=== PATIENT | female | born 1970 | race Caucasian/White ===

== ENCOUNTER 2021-04-20 14:56 | Emergency (ER) | payer OTHER, SELFPAY ==
--- NOTE | ~2021-04-20 | CT_ITS ---
EXAMINATION: CT abdomen pelvis w con DATE: 04/20/2021 18:12 INDICATION: Mid abdominal pain TECHNIQUE: Computed tomography (CT) of the abdomen and pelvis was performed with 100 cc Omnipaque 350 intravenous contrast. Automated exposure control and iterative reconstruction technique were employe d. Exam dose: 337.13 mGy-cm total exam DLP. COMPARISON: 03/13/2019 CT abdomen pelvis 05/24/2018 CT abdomen pelvis FINDINGS: There is mild atelectasis at the left lower lobe. The lung bases are otherwise clear. Cleo l heart size. No pericardial or pleural effusion. 5 mm hypoenhancing lesion of the medial segment of the left hepatic lobe, too small to definitively c haracterize. This might be a small hemangioma or cyst this is minimally increased in size since 05/24. No other hepatic space-occupying mass lesion. The gallbladder is present. No bile duct or panc reatic duct dilatation. No pancreatic mass lesion or calcification. Normal splenic size. Normal morphology of the adrenal glands. No renal mass lesion or urinary tract calculus or hydroureteronephrosis. The urinary bladder is evacu ated. Status post hysterectomy. Normal caliber of the abdominal aorta. No intraperitoneal or retroperitoneal or pelvic lymphadenopath y or ascites. Normal appendix. There are multiple diverticula of the sigmoid colon and to a lesser extent descending colon and splen ic flexure. There is soft tissue thickening of the mid sigmoid colon with pericolic fat stranding, suggesting div erticulitis, without drainable abscess cavity. The cystic mass in the lower posterior pelvis previously measuring 5.1 x 4.2 cm on 05/24/2018 current ly measures approximately 3 x 3.2 cm. There is mildly diminished size of a multilocular cystic lesion in the right adnexal area since 05/24. Degenerative disc at L5-S1 and bilateral hip osteoarthritis. IMPRESSION: Sigmoid diverticulitis Normal appendix Diverticulosis of the left colon 5 mm hypoenhancing lesion of medial segment left hepatic lobe, too small to definitively characterize , slightly larger than on 05/24/2018, most likely benign; this may be a small cyst or hemangioma Diminished size of right adnexal multiloculated cystic lesion and posterior right lower pelvic cystic lesion since 05/24/2018, therefore likely benign Reviewed, dictated and finalized at [facility]. Reviewed, dictated and finalized at [facility]. IMPRESSION: Sigmoid diverticulitis Normal appendix Diverticulosis of the left colon 5 mm hypoenhancing lesion of medial segment left hepatic lobe, too small to def initively characterize, slightly larger than on 05/24/2018, most likely benign; this may be a small cyst or hemangioma Diminished size of right adnexal multiloculated cystic lesion and posterior rig ht lower pelvic cystic lesion since 05/24/2018, therefore likely benign
[2021-04-20 15:08] VITALS: BP 137/95; PULSE 85; RESP 16; TEMP 37.3; O2SAT 96
[2021-04-20 15:31] LABS: Basophils Absolute Auto 0.1 K/mm3 (0.0-0.1); Basophils Percent Auto 0.4 % (0.2-1.2); Eosinophils Absolute Auto 0.1 K/mm3 (0-0.3); Eosinophils Percent Auto 1.2 % (0-4.4); Hematocrit 41.6 % (37.0-47.0); Immature Granulocyte Absolute 0.05 K/mm3 (0.00-0.031); Immature Granulocyte Percent A 0.4 % (0-0.5); Lymphocytes Absolute Auto 2.82 K/mm3 (0.9-3.2); Mean Corpuscular HGB Conc 33.7 g/dl (32-36); Mean Corpuscular Hemoglobin 30.5 pg (26-34); Mean Corpuscular Volume 90.6 fl (80-100); Mean Platelet Volume 8.5 fl (7.4-10.4); Monocytes Percent Auto 9.2 % (2.6-8.5); Neutrophils Absolute Auto 7.2 K/mm3 (1.3-6.7); Neutrophils Percent Auto 63.8 % (45.5-73.1); Platelet Count Result 304 k/mm3 (150-375); Red Blood Count 4.59 M/mm3 (4.2-5.4); Red Cell Distribution Width 12.3 % (11.5-14.5); White Blood Count 11.3 K/mm3 (4.5-10.0)
[2021-04-20 15:41] LABS: Add Urine Microscopic? YES; Appearance Urine Clear (Clear); Bilirubin Urine Negative (Negative); Blood Urine 2+ (Negative); Color Urine Yellow (Yellow); Glucose Urine UA Negative (Negative); Ketones Urine Negative (Negative); Leukocyte Esterase Ur Negative LEU/UL (Negative); Mucus Urine Rare /lpf; Nitrate Urine Negative (Negative); Protein Urine Negative (Negative); Specific Grav Ur 1.011 (1.001-1.035); Urobilinogen Urine Negative mg/dL (<2.0); WBC Urine 0-3 /hpf
[2021-04-20 16:10] LABS: Alanine Aminotransferase 15 U/L (4-35); Albumin Level 4.9 g/dL (3.5-5.1); Alkaline Phosphatase 82 U/L (38-126); Anion Gap 9 mmol/L (8-16); Aspartate Amino Transferase 30 U/L (14-36); Bilirubin,Total 0.7 mg/dL (0.2-1.3); Blood Urea Nitrogen 10 mg/dL (7-17); Calcium 9.3 mg/dL (8.4-10.2); Carbon Dioxide 29 mmol/L (22-30); Chloride 102 mmol/L (98-107); Estimated CRCL calculation 72 ml/min; Estimated Glomerular Filt Rate > 60; Glucose 97 mg/dL (65-110); Lipase 142 U/L (23-300); Potassium 3.6 mmol/L (3.4-5.0); Sodium 140 mmol/L (137-145)
[2021-04-20 18:22] VITALS: BP 137/86; PULSE 77; RESP 14; O2SAT 98
--- NOTE | 2021-04-20 18:34 | ED.GENADULT ---
HPI - General Adult General Chief complaint: Abdominal Pain Stated complaint: abd pain Time Seen by Provider: 04/20/21 17:46 Source: patient and RN notes reviewed History of Present Illness HPI narrative: Patient is a 51 y/o female complaining of lower abdominal pain for 1 week. She describes her pain aching and rates it as 3/10. There is no known alleviating or exacerbating factor. She has some nausea, but vomiting. She has some diarrhea. She also has back pain. She had a virtual visit earlier today and was told that she needs to go to ED to be evaluated for possible appendicitis. Related Data Allergies Allergy/AdvReac Type Severity Reaction Status Date / Time meperidine Allergy Severe Vomiting Verified 02/17/21 09:40 Penicillins Allergy Severe rash Verified 02/17/21 09:40 ketorolac AdvReac Severe Vomiting Verified 02/17/21 09:40 tramadol AdvReac Severe Vomiting Verified 02/17/21 09:40 Review of Systems Constitutional: Constitutional: Denies chills, Denies fever(s), Denies headache(s) and Denies weakness Eyes: Eyes: Denies blurry vision ENT: Denies headache(s) and Denies neck pain Cardiovascular: Cardiovascular: Denies chest pain and Denies dyspnea Respiratory: Respiratory: Denies cough and Denies dyspnea Gastrointestinal: Gastrointestinal: Reports abdominal pain, Reports diarrhea, Reports nausea and Denies vomiting Genitourinary: Genitourinary: Denies hematuria and Denies dysuria Musculoskeletal: Musculoskeletal: Denies back pain and Denies neck pain Neurologic: Denies headache(s) and Denies weakness [facility] Past Medical History Medical History (Updated 04/20/21 @ 19:40 by Xenia Hussein MD) Anxiety Ectopic Melanoma Migraine Normal colonoscopy Sjogrens syndrome Surgical History Surgical History History of partial hysterectomy Family History Family History Other Family history of arthritis Family history of atrial fibrillation Family history of cardiac disorder Family history of malignant neoplasm of cervix Family history of rheumatoid arthritis Hypertension Social History Social History Smoking status: Never smoker Second hand tobacco smoke exposure: No Alcohol intake: current Substance use: never Substance use type: does not use Exam Const: General: no acute distress and well developed Orientation/consciousness: oriented to person, oriented to place, oriented to time and patient oriented x3 HENMT: Head: normocephalic Ears: external ears normal General nose exam: Normal external nose present Eyes: General: appearance normal, both eyes and all related structures Conjunctivae: conjunctivae normal Neck: Neck: normal visual inspection and full ROM Chest: Chest palpation & inspection: normal inspection of the chest and no tenderness Resp: Effort & Inspection: normal respiratory effort Auscultation: clear to auscultation bilaterally Cardio: Rate: regular rate Rhythm: regular rhythm GI: GI Palp: No abdominal tenderness and Yes Soft to palpation Skin: General skin exam: normal color and turgor normal Neuro: General: oriented to person, oriented to place, oriented to time and patient oriented x3 Cognition (Neuro): normal cognition Extrem: General: normal to inspection, full ROM and no pedal edema Psych: Appearance: grossly normal Mental Status: mental status grossly normal Affect: normal affect Course Reevaluation(s) Reevaluation #1: Discussed with patient about her test results, including CT findings of adnexal cyst and liver lesion and the need for follow up with PCP. Date: 04/20/21 Time: 19:36 Vital Signs Vital signs: Vital Signs Temperature 37.3 C 04/20/21 15:08 Pulse Rate 85 04/20/21 15:08 Respiratory Rate 16 04/20/21 15:08 Blood Pressure 137/95 H 04/20/21 15:08 Pulse Oximetry 96
[2021-04-20 19:25] VITALS: BP 126/90; PULSE 79; RESP 16; O2SAT 98
--- NOTE | 2021-04-20 19:25 | PC.NURSE ---
Assumed care of pt at this time. pt alert and upright on stretcher, family at bedside. Pt reports pain is controlled at time. pt updated on POC.
[2021-04-20] MEDS: CIPROFLOXACIN 500 MG TAB PO (20:47)
[2021-04-20] MEDS: metroNIDAZOLE 250 MG TABLET 500 MG PO (20:47)
[2021-04-20 20:52] VITALS: BP 122/86; PULSE 83; RESP 16; O2SAT 98
== END 2021-04-20 20:55 | disposition home or self-care (01) ==
PROVIDERS: General Practice; Emergency Provider Emergency Medicine; PCP Family Medicine
DX: K57.32 Diverticulitis of large intestine without perforation or abscess without bleeding (principal); K76.9 Liver disease, unspecified; M35.00 Sjogren syndrome, unspecified; N94.89 Other specified conditions associated with female genital organs and menstrual cycle
CPT/HCPCS: 36415; 74177; 80053; 81001; 81025; 83690; 85025; 99284; A9270; Q9967

== ENCOUNTER → 2021-05-26 02:12 | Outpatient (CLI) | payer OTHER, SELFPAY ==
[2021-05-26 18:47] LABS: SARS-CoV-2 RNA PCR Negative
== END ==
PROVIDERS: PCP Family Medicine; Visit Provider Physician Assistant
DX: R05.9 Cough, unspecified (principal); Z20.822 Contact with and (suspected) exposure to COVID-19
CPT/HCPCS: C9803; U0003; U0005

== ENCOUNTER → 2021-11-06 08:21 | Outpatient (CLI) | payer OTHER, SELFPAY ==
--- NOTE | ~2021-11-06 | US_ITS ---
EXAMINATION: US soft tissue head and neck DATE: 11/06/2021 08:36 INDICATION: Localized Soft tissue swelling, mass. TECHNIQUE: Multiple ultrasound images of the neck soft tissues were obtained. COMPARISON: None. FINDINGS: The area of swelling was carefully interrogated by the sanitation worker. There is a small normal-appearing lymph node in the area of palpable abnormality. No solid or cystic fluid mass. IMPRESSION: 1. No sonographic abnormality detected in the area of clinical concern. Reviewed, dictated and finalized at [facility].
== END ==
PROVIDERS: PCP Family Medicine; Visit Provider Physician Assistant
DX: R22.1 Localized swelling, mass and lump, neck (principal)
CPT/HCPCS: 76536

== ENCOUNTER 2023-10-25 11:51 | Outpatient (CLI) | payer BC, SELFPAY ==
--- NOTE | ~2023-10-25 | US_ITS ---
EXAMINATION: US soft tissue head and neck DATE: 10/25/2023 12:09 INDICATION: Painful swelling at the left neck TECHNIQUE: Multiple grayscale and Doppler ultrasound images of the abdomen were obtained. COMPARISON: None FINDINGS: No pathologically enlarged lymphadenopathy or other abnormal mass identified at the region of concern at the left neck. Visualized portion of the left thyroid appears normal. IMPRESSION: 1. Normal study with no enlarged lymphadenopathy or other abnormal masses or fluid collections identi fied at the region of concern. Reviewed, dictated and finalized at [facility]. IMPRESSION: 1. Normal study with no enlarged lymphadenopathy or other abnormal masses or fl uid collections identified at the region of concern.
== END 2023-10-25 11:52 ==
PROVIDERS: PCP Family Medicine; Visit Provider Physician Assistant Medical
DX: R59.9 Enlarged lymph nodes, unspecified (principal)
CPT/HCPCS: 76536

== ENCOUNTER 2025-07-08 14:33 | Outpatient (CLI) | payer OTHER, SELFPAY ==
--- NOTE | ~2025-07-08 | US_ITS ---
EXAMINATION: US soft tissue head and neck DATE: 07/08/2025 14:47 INDICATION: Soft tissue swelling and soft palate where at the lateral left neck TECHNIQUE: Multiple grayscale and Doppler ultrasound images of the region of concern at the left neck were obtained. COMPARISON: None FINDINGS: There is a normal-sized left jugular chain lymph node measuring 2 mm in maximal short axis diameter with central echogenic fatty hilum. No pathologically enlarged lymphadenopathy or other abnormal masses or fluid collections identified at the left neck region of concern. IMPRESSION: 1. No pathologically enlarged lymphadenopathy or other abnormal masses or fluid collection at the left neck region of concern. Reviewed, dictated and finalized at location [facility]. [facility] [employer]
== END 2025-07-08 14:34 | disposition home or self-care (01) ==
LOC: MICIMG 14:34
PROVIDERS: PCP Student in an Organized Health Care Education/Training Program
DX: K21.00 Gastro-esophageal reflux disease with esophagitis, without bleeding (principal)
CPT/HCPCS: 76536